=== PATIENT | female | born 2000 | race Two or more races ===

== ENCOUNTER 2024-08-27 01:15 | Emergency (ER) | payer SELFPAY ==
[~2024-08-27] VITALS: Ht 167.6 cm; Wt 62.8 kg
[2024-08-27 02:22] LABS: Urine Bacteria FEW /hpf (None Seen); Urine Blood Negative /uL (Negative); Urine Clarity Turbid (Clear); Urine Mucus FEW (None Seen); Urine Protein, UAD 1+ (Negative); Urine Urobilinogen Normal (Negative); Urine WBC 143 /hpf (0 - 5)
[2024-08-27 02:29] LABS: Urine Color Dark Yellow (Yellow)
[2024-08-27 03:06] LABS: Basophils # (auto) 0 10 ^3/uL (0-0.2); Eosinophils # (auto) 0.1 10 ^3/uL (0-0.8); White Blood Cell 13.2 10^3/uL (4.4-10.8)
[2024-08-27 03:07] LABS: Basophils % (auto) 0.2 % (0.0-2.0); Eosinophils % (auto) 0.7 % (0.0-7.0); Hematocrit 42.8 % (36.0-46.0); Hemoglobin 14.5 g/dL (12.2-16.2); Lymphocytes # (auto) 4.8 10 ^3/uL (0.4-5.4); Lymphocytes % (auto) 36.3 % (10.0-50.0); Mean Corpuscular Hemoglobin 26.6 pg (28.0-32.0); Mean Corpuscular Hgb Conc. 33.9 g/dL (32.0-36.0); Mean Corpuscular Volume 78.5 fL (80.0-100.0); Neutrophils # (auto) 7.2 10 ^3/uL (1.6-8.6); Neutrophils % (auto) 54.8 % (37.0-80.0); Platelet Count (auto) 333 10^3/uL (140-450); Red Blood Cells 5.45 10^6/uL (4.0-5.20); Red Cell Distribution Width 14.7 % (11.8-14.3)
[2024-08-27 03:15] LABS: Alanine Aminotransferase 10 U/L (7-40); Albumin 5.2 g/dL (3.2-4.8); Alkaline Phosphatase 111 U/L (46-116); Anion Gap 7 (5-15); Aspartate Aminotransferase 14 U/L (13-40); BUN/Creatinine Ratio 8.9 (10.0-20.0); Bilirubin, Total 0.7 mg/dL (0.2-1.0); Blood Urea Nitrogen 8 mg/dL (9-23); Calcium 10.3 mg/dL (8.7-10.4); Carbon Dioxide 26 mmol/L (20-31); Chloride 104 mmol/L (98-107); Glucose 89 mg/dL (74-106); Potassium 3.6 mmol/L (3.5-5.1); Sodium 137 mmol/L (136-145); Total Protein 8.3 g/dL (5.7-8.2)
[2024-08-27 04:39] LABS: Amphetamine Screen, Urine Neg (NEGATIVE); Barbiturate Scree,Urine Neg (NEGATIVE); Benzodiazephine Screen, Urine Pos (NEGATIVE); Cocaine Screen, Urine Pos (NEGATIVE); Opiate Scree,Urine Neg (NEGATIVE)
[2024-08-27 04:40] LABS: Cannabinoid Screen, Urine Pos (NEGATIVE); Phencyclidine Screen, Urine Neg (NEGATIVE)
[2024-08-27] MEDS: NITROFURANTOIN 100 mg CAP PO ONE (04:43)
[2024-08-27 04:44] VITALS: BP 104/80; PULSE 91; RESP 16; TEMP 98.6; O2SAT 98
[2024-08-27] MEDS ORDERED: CEFD300C2 PO (04:45)
== END 2024-08-27 05:04 | disposition home or self-care (01) ==
LOC: ER 01:15
DX: N39.0 Urinary tract infection, site not specified (principal); F19.10 Other psychoactive substance abuse, uncomplicated
CPT/HCPCS: 36415; 80053; 80307; 81001; 85025

== ENCOUNTER 2024-09-03 18:06 | Emergency (ER) | payer OTHER ==
[~2024-09-03] VITALS: Ht 167.6 cm; Wt 68.6 kg
[~2024-09-03 18:06] MED LIST: CEFD300C2 PO
[2024-09-03] MEDS ORDERED: AUG875T PO (19:26)
[2024-09-03] MEDS ORDERED: IBUP-1456 PO (19:26)
[2024-09-03] MEDS: KETOROLAC TROMETH 60MG/2ML VIAL IM ONE (19:31)
[2024-09-03 19:50] VITALS: BP 125/85; PULSE 91; RESP 18; TEMP 98.1; O2SAT 98
== END 2024-09-03 20:55 | disposition home or self-care (01) ==
LOC: ER 18:06
DX: K04.7 Periapical abscess without sinus (principal); F41.9 Anxiety disorder, unspecified; Z79.899 Other long term (current) drug therapy
CPT/HCPCS: 70450; 70486; 72125; 96372; 99285; J1885